=== PATIENT | female | born 1990 | race Caucasian/White ===

== ENCOUNTER 2019-12-02 17:52 | Emergency (ER) | payer OTHER ==
[~2019-12-02] VITALS: Ht 167.6 cm; Wt 79.4 kg
[2019-12-02 17:57] VITALS: BP 126/81
[2019-12-02] MEDS ORDERED: LORazepam 2 MG/ML VIAL IM ONE (18:20)
--- NOTE | 2019-12-02 18:20 | NUR ---
PT REFERRED TO ER BY THERAPIST FOR EVALUATION. PER PT, OVER THE LAST MONTH SHE HAS FELT VERY UNEASY AND ANXIOUS FOR UNKNOWN REASONS. PT DENIES SI/HI. PT IS TEARFUL AND STATES SHE HAS FELT VERY FATIGUED AND JUST DOESN'T WANT TO DO ANYTHING AT HOME OTHER THAN SLEEP. PT IN BED, SIDE RAIL UP X1
[2019-12-02 19:37] VITALS: BP 128/76
== END 2019-12-02 19:37 | disposition home or self-care (01) ==
LOC: MED 17:52
DX: F41.9 Anxiety disorder, unspecified (principal)
CPT/HCPCS: 81002; 81025; 96372; 99283; J2060

== ENCOUNTER 2019-12-05 18:44 | Emergency (ER) | payer OTHER ==
[~2019-12-05] VITALS: Ht 165.1 cm; Wt 78.0 kg
[2019-12-05 18:48] VITALS: BP 127/84
[2019-12-05 20:06] LABS: BASOPHILS # (AUTO) 0.1 K/uL (0.00-0.22); BASOPHILS % (AUTO) 0.4 % (0.0-2.0); EOSINOPHILS # (AUTO) 0.1 K/uL (0-0.4); EOSINOPHILS % (AUTO) 0.7 % (0.0-4.0); HEMATOCRIT 38.3 % (36-48); HEMOGLOBIN 12.9 g/dL (12.0-16.0); LYMPHOCYTES # (AUTO) 3.3 K/uL (2.5-16.5); LYMPHOCYTES % (AUTO) 27.9 % (20.5-51.1); MEAN CORPUSCULAR HEMOGLOBIN 30 pg (27-31); MEAN CORPUSCULAR HGB CONC 34 g/dL (33-37); MEAN CORPUSCULAR VOLUME 89.5 fL (80-94); MONOCYTES # (AUTO) 0.9 K/uL (0.8-1.0); MONOCYTES % (AUTO) 8.1 % (1.7-9.3); NEUTROPHILS # (AUTO) 7.4 K/uL (1.8-7.7); NEUTROPHILS % (AUTO) 62.9 % (42.2-75.2); PLATELET COUNT (AUTO) 347 K/uL (140-450); RED BLOOD CELL COUNT(AUTO) 4.28 MIL/uL (4.20-5.40); RED CELL DISTRIBUTION WIDTH 13.7 % (11.6-13.7); WHITE BLOOD COUNT (AUTO) 11.7 K/uL (4.8-10.8)
[2019-12-05 20:27] LABS: ALBUMIN 4.4 g/dL (3.4-5.0); ANION GAP 17.4 (8-16); CARBON DIOXIDE 26.6 mmol/L (21-32); CREATININE 0.7 mg/dL (0.6-1.3); FREE T4 (FREE THYROXINE) 1.36 ng/dL (0.76-1.46); THYROID STIMULATING HORMONE 0.33 uIU/mL (0.34-3.74); TOTAL BILIRUBIN 0.5 mg/dL (0.0-1.0)
[2019-12-05 20:32] VITALS: BP 118/89
== END 2019-12-05 21:51 | disposition home or self-care (01) ==
LOC: MED 18:44
DX: F41.0 Panic disorder [episodic paroxysmal anxiety] (principal); F32.9 Major depressive disorder, single episode, unspecified
CPT/HCPCS: 36415; 80053; 84439; 84443; 84484; 85025; 93005; 99284

== ENCOUNTER 2020-01-27 18:45 | Emergency (ER) | payer OTHER ==
[~2020-01-27] VITALS: Ht 165.1 cm; Wt 77.1 kg
[2020-01-27 19:27] VITALS: BP 124/76
[2020-01-27 21:25] VITALS: BP 124/76
--- NOTE | 2020-01-27 21:25 | NUR ---
Patient discharged with v/s stable. Written and verbal after care instructions given and explained. Patient alert, oriented and verbalized understanding of instructions. Ambulatory with steady gait. All questions addressed prior to discharge. ID band removed. Patient advised to follow up with PMD. Rx of AZITHROMYCIN given. Patient educated on indication of medication including possible reaction and side effects. Opportunity to ask questions provided and answered.
== END 2020-01-27 21:25 | disposition home or self-care (01) ==
LOC: MED 18:45
DX: R07.9 Chest pain, unspecified (principal); J18.9 Pneumonia, unspecified organism
CPT/HCPCS: 71045; 99283

== ENCOUNTER 2020-02-10 12:44 | Emergency (ER) | payer OTHER ==
[~2020-02-10] VITALS: Ht 165.1 cm; Wt 77.1 kg
[2020-02-10 13:04] VITALS: BP 122/86
--- NOTE | 2020-02-10 15:05 | NUR ---
Patient discharged with v/s stable. Written and verbal after care instructions given and explained. Patient verbalized understanding. Ambulatory with steady gait. All questions addressed prior to discharge. Advised to follow up with PMD. No nursing care provided in our ER.
== END 2020-02-10 15:05 | disposition home or self-care (01) ==
LOC: MED 12:44
DX: J18.9 Pneumonia, unspecified organism (principal)
CPT/HCPCS: 71045; 99283